=== PATIENT | female | born 1970 | race Asian ===

== ENCOUNTER 2021-01-03 00:08 | Emergency (ER) | payer OTHER ==
[~2021-01-03 00:08] MED LIST: AMLO-257 PO; CIPR500T10 PO; LEVO500T89 PO; OMEP40CA21 PO; SUCR1TAB2 PO
[2021-01-03 01:40] VITALS: BP 150/80
[2021-01-03] MEDS ORDERED: OXYMETAZOLINE HCL SPRAY 15 ML BOTTLE ONE (02:45)
[2021-01-03] MEDS ORDERED: OXYMETAZOLINE HCL SPRAY 15 ML BOTTLE EN SCH (03:00)
[2021-01-03] MEDS ORDERED: LIDOCAINE HCL 2% JELLY 5 ML ONE (03:02)
[2021-01-03] MEDS ORDERED: MORPHINE 2 MG SYG ONE (03:16)
[2021-01-03 03:27] LABS: BASOPHILS % (AUTO) 0.4 % (0.0-5.0); EOSINOPHILS % (AUTO) 1.8 % (0.0-8.0); LYMPHOCYTES % (AUTO) 14.1 % (21.0-51.0); MEAN CORPUSCULAR HEMOGLOBIN 28.8 pg (27.0-33.0); MEAN CORPUSCULAR HGB CONC 34.1 g/dL (32.0-36.0); MEAN CORPUSCULAR VOLUME 84.4 fL (79-99); MONOCYTES % (AUTO) 5.7 % (3.0-13.0); NEUTROPHILS % (AUTO) 77.1 % (40.0-77.0); PLATELET COUNT (AUTO) 276 K/uL (130-400); RED BLOOD CELL COUNT(AUTO) 3.79 MIL/uL (4.00-5.50); RED CELL DISTRIBUTION WIDTH 13.1 % (11.0-15.5); WHITE BLOOD COUNT (AUTO) 20.2 K/uL (4.8-10.8)
[2021-01-03 03:41] LABS: ALBUMIN 3.3 g/dL (3.5-5.0); BILIRUBIN,TOTAL 0.2 mg/dL (0.2-1.0); CREATININE 0.9 mg/dL (0.5-1.5); TOTAL PROTEIN, SERUM 9.4 g/dL (6.0-8.3)
[2021-01-03 03:42] LABS: PROTHROMBIN TIME 10.9 SEC (9.6-11.6)
[2021-01-03 03:43] LABS: PARTIAL THROMBOPLASTIN TIME 28.8 SEC (26.3-35.5); POTASSIUM 2.9 mmol/L (3.5-5.1)
[2021-01-03] MEDS ORDERED: POTASSIUM CHLORIDE 10% ELIXIR 20 MEQ/15 ML UDCUP ONE (03:50)
[2021-01-03] MEDS ORDERED: POTASSIUM CHLORIDE 10% ELIXIR 20 MEQ/15 ML UDCUP PO ONE (04:00)
[2021-01-03] MEDS ORDERED: MORPHINE 2 MG SYG IVP ONE (04:00)
[2021-01-03] MEDS ORDERED: CEFTRIAXONE 1G VIAL IVP ONE (06:30)
[2021-01-03] MEDS ORDERED: AMOX-426 PO (06:32)
[2021-01-03 07:46] VITALS: BP 145/74
== END 2021-01-03 07:30 | disposition home or self-care (01) ==
LOC: EDH 00:08
DX: R04.0 Epistaxis (principal); E87.6 Hypokalemia; D72.829 Elevated white blood cell count, unspecified; R05 Cough; Z79.899 Other long term (current) drug therapy
CPT/HCPCS: 30901; 36415; 80053; 85025; 85610; 85730; 96374; 96375; 99284; J0696